=== PATIENT | male | born 1970 | race Caucasian/White ===

== ENCOUNTER 2018-05-02 20:02 | Emergency (ER) | payer BC ==
[~2018-05-02] VITALS: Ht 185.4 cm; Wt 117.9 kg
[2018-05-02] MEDS ORDERED: CHLORZOXAZONE500 M2 PO (20:08)
[2018-05-02] MEDS ORDERED: NAPROSYN500 MG PO (20:08)
== END 2018-05-02 20:15 | disposition home or self-care (01) ==
LOC: ED 20:02
DX: M25.511 Pain in right shoulder (principal); R03.0 Elevated blood-pressure reading, without diagnosis of hypertension